=== PATIENT | male | born 1975 | race American Indian/Alaskan Native ===

== ENCOUNTER 2021-06-10 09:28 | Emergency (ER) | payer OTHER ==
[2021-06-10] MEDS ORDERED: SODIUM CHLORIDE 0.9% IRR 500 ML BOTTLE IR SCH (10:00)
[2021-06-10] MEDS ORDERED: TETANUS,DIPH,PERTUSS(ACELL) VACCINE 0.5 ML SYRINGE IM ONE (10:07)
[2021-06-10] MEDS ORDERED: NEOMY 3.5 MG/BACIT 400 UNITS/POLY B 5000 UNITS/GM OINT PACKET TP ONE (10:07)
[2021-06-10] MEDS ORDERED: LIDOCAINE (1%) 10 MG/1 ML VIAL 20 ML MDV INFILTRATI ONE (10:07)
--- NOTE | 2021-06-10 10:08 | Emergency Department Report ---
- General Chief Complaint: Wound/Laceration Stated Complaint: LAC TO HEAD Time Seen by Provider: 06/10/21 10:06 Source: patient Mode of arrival: Ambulatory Limitations: No Limitations - History of Present Illness Initial Comments: Patient is a pleasant 45-year-old male that comes to the emergency room after being hit in the head with some debris that fell out of a truck while at work. The material was supposed to have been stabilized or secured but it was not and when the patient opened the door he came back and hit him in the head. He has a laceration to the top of his head. No LOC. This was witnessed. He is ambulatory nontoxic and [id number] on arrival to the ER -: Sudden, hour(s) Location: scalp Place: work Patient Tetanus UTD: No Context: accidental Associated Symptoms: pain - Related Data Home Medications Medication Instructions Recorded Confirmed Last Taken Emtricita/Rilpivirine/Tenof Df 1 tab PO DAILY 03/02/13 09/26/14 03/02/13 22:00 [Complera Tablet] Allergies Allergy/AdvReac Type Severity Reaction Status Date / Time Sulfa (Sulfonamide Allergy Shortness Verified 03/02/13 16:02 Antibiotics) of Breath,HIVES ED Review of Systems ROS: Stated complaint: LAC TO HEAD Other details as noted in HPI Comment: All other systems reviewed and negative ED Past Medical Hx - Past Medical History Hx Hypertension: Yes Hx HIV: Yes - Family History Family history: no significant - Social History Smoking Status: Never Smoker Substance Use Type: None - Medications Home Medications: Home Medications Medication Instructions Recorded Confirmed Last Taken Type Emtricita/Rilpivirine/Tenof Df 1 tab PO DAILY 03/02/13 09/26/14 03/02/13 22:00 History [Complera Tablet] ED Physical Exam - General Limitations: No Limitations General appearance: alert, in no apparent distress - Head Head exam: Present: atraumatic, normocephalic - Eye Eye exam: Present: normal appearance - ENT ENT exam: Present: mucous membranes moist - Neck Neck exam: Present: normal inspection - Respiratory Respiratory exam: Present: normal lung sounds bilaterally. Absent: respiratory distress - Cardiovascular Cardiovascular Exam: Present: regular rate, normal rhythm. Absent: systolic murmur, diastolic murmur, rubs, gallop - GI/Abdominal GI/Abdominal exam: Present: soft, normal bowel sounds - Rectal Rectal exam: Present: deferred - Extremities Exam Extremities exam: Present: normal inspection - Back Exam Back exam: Present: normal inspection - Neurological Exam Neurological exam: Present: alert, oriented X3 - Psychiatric Psychiatric exam: Present: normal affect, normal mood - Skin Skin exam: Present: warm, dry, normal color, other. Absent: rash ED Course Vital Signs 06/10/21 09:57 Temperature 98.6 F Pulse Rate 81 Respiratory 16 Rate Blood Pressure 189/127 O2 Sat by Pulse 99 Oximetry - Laceration /Wound Repair head Wound Location: head Wound Length (cm): 5 Wound Explored: clean Irrigated w/ Saline (ccs): 100 Betadine Prep?: Yes Anesthesia: 1% Lidocaine Volume Anesthetic (ccs): 4 Wound Debrided: minimal Layer Closure?: No Sterile Dressing Applied?: Yes Progress: yemi- 5 tolerated well ED Medical Decision Making - Medical Decision Making wound care and repair tdap Vital Signs 06/10/21 09:57 Temperature 98.6 F Pulse Rate 81 Respiratory 16 Rate Blood Pressure 189/127 O2 Sat by Pulse 99 Oximetry Patient being discharged home with discharge plan of care including diet, activity, pain management and follow-up. Patient has no ecchymosis hematoma or swelling around the laceration. - Differential Diagnosis simple lac Critical care attestation.: If time is entered above; I have spent that time in minutes in the direct care of this critically ill patient, excluding procedure time. ED Disposition Clinical Impression: Laceration, HIV positive, HTN (hypertension), benign Head injury Qualifiers: Encounter type: initial encounter Qualified Code(s): S09.90XA - Unspecified injury of head, initial encounter Disposition: HOME / SELF CARE / HOMELESS Is pt being admited?: No Does the pt Need Aspirin: No Condition: Stable Instructions: Head Injury, Adult, Laceration Care, Adult, Hypertension (ED) Additional Instructions: ice tylenol for pain keep wound clean and dry return to ER in 7-10 days for staple removal Referrals: GREGORY BELL MD [Staff Physician] - 3-5 Days Forms: Work/School Release Form(ED) Time of Disposition: 10:24
[2021-06-10] MEDS ORDERED: ACETAMINOPHEN 500 MG TAB PO ONE (10:25)
[2021-06-10 11:39] VITALS: BP 176/114
== END 2021-06-10 11:46 | disposition home or self-care (01) ==
LOC: ED 09:28
DX: S01.01XA Laceration without foreign body of scalp, initial encounter (principal); B20 Human immunodeficiency virus [HIV] disease; I10 Essential (primary) hypertension; Z88.2 Allergy status to sulfonamides; W22.8XXA Striking against or struck by other objects, initial encounter; Y93.89 Activity, other specified; Y92.89 Other specified places as the place of occurrence of the external cause; Y99.8 Other external cause status
CPT/HCPCS: 12002; 90471; 90715; 99282; J3490